=== PATIENT | male | born 1955 | race Caucasian/White ===

== ENCOUNTER 2019-02-24 17:17 | Emergency (ER) | payer MEDICARE, MEDICAID ==
[~2019-02-24] VITALS: Ht 185.4 cm; Wt 80.0 kg
[2019-02-24 17:27] VITALS: BP 155/85
[2019-02-24] MEDS ORDERED: PLEASE ENTER HEIGHT AND WEIGHT MC SCH (17:30)
[2019-02-24] MEDS ORDERED: DIPH,PERTUSS(ACELL),TET VAC/PF 0.5 ML IM-VACC ONE ×2 (17:30→17:38)
[2019-02-24] MEDS ORDERED: PLEASE ENTER ALLERGIES MC SCH ×2 (17:30→18:30)
[2019-02-24] MEDS ORDERED: CEPHALEXIN 500 MG CAPSULE PO ONE (17:30)
[2019-02-24] MEDS ORDERED: CEPHALEXIN 500 MG CAPSULE ONE (17:38)
[2019-02-24] MEDS ORDERED: LIDOCAINE-MPF 1%, 2ML ONE (17:43)
--- NOTE | 2019-02-24 17:56 | NUR ---
BIB EMS FOR LACERATION TO LEFT PINKY FINGER. PT IS ALSO INTOXICATED. PT STABLE. NO NEEDS AT THIS TIME. MEDICATED PER ORDERS
[2019-02-24] MEDS ORDERED: LIDOCAINE-MPF 1%, 5ML INFIL ONE (18:00)
--- NOTE | 2019-02-24 18:39 | NUR ---
Cliff gil in EDM - 02/24/19 at 1903 by LIZBETH RECEIVED REPORT FROM RN. ASSUMED CARE OF PT.
--- NOTE | 2019-02-24 18:52 | NUR ---
PA AT BEDSIDE FOR SUTURES
--- NOTE | 2019-02-24 19:15 | NUR ---
Patient/Caregiver given discharge instructions and they have confirmed that they understand the instructions. Patient ambulatory with steady gait.
== END 2019-02-24 19:23 | disposition home or self-care (01) ==
LOC: ED 18:00
DX: S61.215A Laceration without foreign body of left ring finger without damage to nail, initial encounter (principal); F10.120 Alcohol abuse with intoxication, uncomplicated; E11.9 Type 2 diabetes mellitus without complications; Z72.89 Other problems related to lifestyle; X58.XXXA Exposure to other specified factors, initial encounter; Y93.89 Activity, other specified; Y92.89 Other specified places as the place of occurrence of the external cause; Y99.8 Other external cause status; Y90.9 Presence of alcohol in blood, level not specified
CPT/HCPCS: 12001; 90471; 90715; 99283

== ENCOUNTER 2019-03-07 09:54 | Emergency (ER) | payer MEDICARE, MEDICAID ==
[~2019-03-07] VITALS: Ht 177.8 cm; Wt 68.6 kg
[2019-03-07 09:56] VITALS: BP 126/83
== END 2019-03-07 10:31 | disposition home or self-care (01) ==
LOC: ED 10:25
DX: S61.215D Laceration without foreign body of left ring finger without damage to nail, subsequent encounter (principal); X58.XXXD Exposure to other specified factors, subsequent encounter; Z48.02 Encounter for removal of sutures
CPT/HCPCS: 99281